=== PATIENT | female | born 1990 | race Caucasian/White ===

== ENCOUNTER 2017-10-11 05:49 | Emergency (ER) | payer OTHER ==
[2017-10-11 06:21] VITALS: BMI 32.3
--- NOTE | 2017-10-11 07:05 | PDOC ---
History of Present Illness - General Chief Complaint: Cold Symptoms Stated Complaint: FEVER Time Seen by Provider: 10/11/17 06:57 - History of Present Illness Initial Comments: 10/11/17 07:41 The patient is a 27 year old 32 week with no significant PMH who presents for evaluation of cold like symptoms. The patient reports a 1 day history of subjective fevers, cough, rhinorrhea, sore throat and body aches. She reports that she has been having intermittent abdominal cramping prompting her presentation to the ED for evaluation. She states that she wanted to get her baby checked. She otherwise denies SOB, chest pain, nausea, vomiting, or changes with urination or bowel movements. Past History - Past Medical History Allergies/Adverse Reactions: Allergies Allergy/AdvReac Type Severity Reaction Status Date / Time No Known Allergies Allergy Verified 10/11/17 06:17 Home Medications: Ambulatory Orders Pnv No.95/Ferrous Fum/Folic AC [ Tablet] 1 each PO DAILY 12/30/12 Acetaminophen [Tylenol .Regular Strength -] 325 mg PO Q3H PRN #2 tablet Oseltamivir Phosphate [Tamiflu -] 75 mg PO BID #10 capsule 10/11/17 Asthma: No Cancer: No Cardiac Disorders: No COPD: No Diabetes: No HTN: No Seizures: No Thyroid Disease: No Other medical history: Pt denies - Suicide/Smoking/Psychosocial Hx Smoking History: Never smoked Have you smoked in the past 12 months: No Information on smoking cessation initiated: No Hx Alcohol Use: No Drug/Substance Use Hx: No Substance Use Type: None Hx Substance Use Treatment: No Review of Systems - Review of Systems Comments:: 10/11/17 07:55 Constitutional: Fevers, chills, body aches. HEENT: Rhinorrhea, nasal congestion, No visual changes Cardiovascular: No chest pain, syncope, palpitations, lightheadedness Respiratory: Cough. No SOB, Hemoptysis, Gastrointestinal: No Nausea, Vomiting, Constipation, Diarrhea, Melena Genitourinary: No Dysuria, Frequency, Urgency, Hesitancy, Hematuria, Flank pain Musculoskeletal: No Myalgia, arthralgia Skin: No rashes, itching, bruising, pallor Neurologic: No Headache, Dizziness, Numbness, Weakness, or Tingling Psychiatric: No Hallucinations. No SI or HI *Physical Exam - Vital Signs Last Vital Signs Temp Pulse Resp BP Pulse Ox 98.8 F 112 H 20 133/84 100 10/11/17 06:17 10/11/17 06:17 10/11/17 06:17 10/11/17 06:17 10/11/17 06:17 - Physical Exam Comments: 10/11/17 07:56 General Appearance: Nourished. No Apparent Distress HEENT: EOMI, JOANN. Pharyngeal Erythema, No Tonsillar Exudate, Tonsillar Erythema Neck: No Cervical Lymphadenopathy Respiratory/Chest: Lungs Clear, Normal Breath Sounds. No Crackles, Rales, Rhonchi, Wheezing Cardiovascular: Regular Rhythm, Regular Rate. No Murmur, Gallops, Rubs Gastrointestinal/Abdominal: Normal Bowel Sounds, Soft. No Guarding, Rebound, Tenderness Musculoskeletal: No CVA Tenderness Extremity: Normal Capillary Refill Integumentary: Normal Color, Dry, Warm Neurologic: Fully Oriented, Alert, Normal Mood/Affect, Normal Response, Medical Decision Making - Medical Decision Making 10/11/17 08:00 The patient is a 27 year old 32 week with no significant PMH who presents for evaluation of cold like symptoms. Given the patient's history and physical exam, it is likely the patient's symptoms are due to an influenza like illness. She is lack any focal evidence of infectious process and she lacks any clinical findings of bacterial infection. We will treat empirically with tamiflu. The patient will be sent to L&D for monitoring. Sign out has been given. *DC/Admit/Observation/Transfer Diagnosis at time of Disposition: Influenza-like illness - Prescriptions Prescriptions: Oseltamivir Phosphate [Tamiflu -] 75 mg PO BID #10 capsule - Referrals Referrals: Itzel Brock [Primary Care Provider] - - Patient Instructions Printed Discharge Instructions: DI for Influenza -- Adult Additional Instructions: Please return to the ER if you experience concerning or worsening symptoms including worsening fevers, vomiting, chest pain, or difficulty breathing. It is likely your symptoms are due to the flu. We have sent a prescription for Tamiflu to your pharmacy which you should take twice a day for 5 days. You may use tylenol as needed for pain and fevers as well. Please call to schedule a follow up appointment with your primary care provider within 2-3 days to discuss your ER visit. Por favor, regrese a la meño de emergencias si experimenta problemas o empeoramiento de los sntomas incluyendo empeoramiento de las fiebres, vmitos, dolor en el pecho o dificultad para respirar. Es probable que claude sntomas se deban a la gripe. Hemos enviado isabella prescripci n para Tamiflu a black farmacia que usted debe henok dos veces al da por 5 iniguez. Usted puede usar Tylenol johanna sea necesario para el dolor y las fiebres tambi n. Por favor llame para programar isabella kalin de seguimiento con black proveedor de atencin primaria dentro de 2-3 iniguez para discutir black visita de urgencias. Print Language: SOUTH SUDANESE - Post Discharge Activity
[2017-10-11] MEDS ORDERED: OSELTAMIVIR PHOSPHATE 75 MG CAPSULE PO ONE (07:52)
[2017-10-11] MEDS ORDERED: OSELTAMIVIR PHOSPHATE 75 MG CAPSULE ONE (07:57)
--- NOTE | 2017-10-11 08:00 | PDOC ---
Attending Attestation - Resident Resident Name: DeniseSteven - ED Attending Attestation I have performed the following: I have examined & evaluated the patient, The case was reviewed & discussed with the resident, I agree w/resident's findings & plan, Exceptions are as noted - HPI HPI: 10/11/17 07:53 27-year-old healthy female at 32 weeks gestation uncomplicated presents now with nasal congestion and rhinorrhea, sore throat, dry cough, body aches, and chills since last night. No measured fever, denies any chest pain or shortness of breath, abdominal cramping but no n/v/d/c. No vaginal bleeding/discharge. no travel, no known sick contacts, child at home is well. - Physicial Exam PE: 10/11/17 08:00 Afebrile, heart rate 92 on my examination Nasal congestion and rhinorrhea Oropharynx is clear without swelling or exudate No lymphadenopathy, neck is supple Lungs are clear, heart is regular Abdomen is gravid but nontender No rash, brisk cap refill - Medical Decision Making 10/11/17 08:00 Patient seen and evaluated with the resident. I agree with the overall evaluation, assessment, and management with the following summary of visit: 27-year-old female at 32 weeks gestation presents with influenza-like illness without evidence of focal infectious process, no clinical findings suggestive of pharyngitis or pneumonia. Afebrile, normal O2 sat, improves heart rate at rest. We'll treat empirically for influenza with tamiflu, testing not available Patient primarily requesting L+D evaluation, signout given and will proceed to labor and delivery for monitoring. Understands return criteria
[2017-10-11] MEDS ORDERED: DEXTROSE 5%-LACTATED RINGERS 500 ML IV SCH (09:30)
[2017-10-11 09:54] VITALS: BP 122/88; PULSE 105; TEMP 99
[2017-10-11 10:10] LABS: BASO % 0.5 % (0-2.0); EOS % 0.3 % (0-4.5); HEMATOCRIT 32.6 % (32.4-45.2); HEMOGLOBIN 10.8 GM/dL (10.7-15.3); LYMPH % 9.7 % (8-40); MCH 25.2 pg (25.7-33.7); MCHC 33.1 g/dl (32.0-36.0); MEAN CELL VOLUME 76.2 fl (80-96); MEAN PLT VOLUME 9.2 fl (7.5-11.1); MONO % 6.9 % (3.8-10.2); NEUT % 82.6 % (42.8-82.8); PLATELET COUNT 191 K/MM3 (134-434); RBC 4.29 M/mm3 (3.60-5.2); RDW 18.2 % (11.6-15.6); WHITE BLOOD COUNT 8.5 K/mm3 (4.0-10.0)
[2017-10-11] MEDS ORDERED: DEXTROSE 5%-LACTATED RINGERS 1,000 ML IV SCH (10:30)
[2017-10-11 10:35] LABS: ALBUMIN 2.4 g/dl (3.4-5.0); ANION GAP 11 (8-16); BILIRUBIN,TOTAL 0.3 mg/dL (0.2-1.0); BLOOD UREA NITROGEN 5 mg/dL (7-18); CHLORIDE 106 mmol/L (98-107); CO2 19 mmol/L (21-32); CREATININE 0.5 mg/dL (0.55-1.02); GLUCOSE,RANDOM 172 mg/dL (74-106); POTASSIUM 3.8 mmol/L (3.5-5.1); SGOT/AST 31 U/L (15-37); SODIUM 136 mmol/L (136-145); TOT PROT 6.2 g/dl (6.4-8.2)
[2017-10-11 10:36] LABS: ALK PHOS 209 U/L (45-117); SGPT/ALT 28 U/L (12-78)
[2017-10-11] MEDS ORDERED: ACETAMINOPHEN 325 MG TABLET (FP) PO ONE (11:45)
[2017-10-11] MEDS ORDERED: ACETAMINOPHEN 325 MG TABLET (FP) ONE (11:50)
== END 2017-10-11 15:30 | disposition home or self-care (01) ==
LOC: JER 05:49
PROC: 3E033GC Introduction of Other Therapeutic Substance into Peripheral Vein, Percutaneous Approach (ICD-10-PCS; principal; 2017-10-11)
DX: O26.893 Other specified pregnancy related conditions, third trimester (principal); Z3A.32 32 weeks gestation of pregnancy; J11.1 Influenza due to unidentified influenza virus with other respiratory manifestations
CPT/HCPCS: 36415; 80053; 85025; 99282-25

== ENCOUNTER 2018-09-18 08:58 | Emergency (ER) | payer OTHER ==
[2018-09-18 09:23] VITALS: BP 140/86; PULSE 89; TEMP 98; BMI 34.3
[2018-09-18] MEDS ORDERED: IBUPROFEN 400 MG TABLET (FP) PO ONE ×2 (09:46→09:49)
[2018-09-18] MEDS ORDERED: SULFAMETHOXAZOLE/TRIMETHOPRIM 800MG/160MG D.S. TABLET PO ONE (09:46)
[2018-09-18] MEDS ORDERED: SULFAMETHOXAZOLE/TRIMETHOPRIM 800MG/160MG D.S. TABLET ONE (09:49)
--- NOTE | 2018-09-18 10:00 | PDOC ---
History of Present Illness - General Chief Complaint: Pain, Acute Stated Complaint: RIGHT SHOULDER PAIN Time Seen by Provider: 09/18/18 09:26 History Source: Patient Exam Limitations: No Limitations - History of Present Illness Initial Comments: 09/18/18 09:46 Here with complaints of right shoulder pain. States yesterday had onset of a small blister that drained pus yesterday afternoon but area has become more erythematous and tender. Occurred: reports: yesterday Severity: reports: mild, moderate Pain Location: reports: upper extremity (right shoulder ) Modifying Factors: improves with: None Loss of Consciousness: no loss of consciousness Past History - Travel Traveled outside of the country in the last 30 days: No Close contact w/someone who was outside of country & ill: No - Past Medical History Allergies/Adverse Reactions: Allergies Allergy/AdvReac Type Severity Reaction Status Date / Time No Known Allergies Allergy Verified 09/18/18 09:23 Home Medications: Ambulatory Orders Pnv No.95/Ferrous Fum/Folic AC [ Tablet] 1 each PO DAILY 12/30/12 Acetaminophen [Tylenol .Regular Strength -] 325 mg PO Q3H PRN #2 tablet Oseltamivir Phosphate [Tamiflu -] 75 mg PO BID #10 capsule 10/11/17 Sulfamethoxazole/Trimethoprim [Bactrim *Ds*] 1 each PO BID #14 tablet 09/18/18 Asthma: No Cancer: No Cardiac Disorders: No COPD: No Diabetes: No HTN: No Seizures: No Thyroid Disease: No - Reproductive History (#): 2 Cervical CA: No Dysfunctional Uterine Bleeding: No Ectopic : No Endometrial CA: No Polycystic Ovaries: No Therapeutic (s) & number: No Tubal Ligation: No - Suicide/Smoking/Psychosocial Hx Smoking History: Never smoked Have you smoked in the past 12 months: No Information on smoking cessation initiated: No Hx Alcohol Use: No Drug/Substance Use Hx: No Substance Use Type: None Hx Substance Use Treatment: No Review of Systems - Review of Systems Able to Perform ROS?: Yes Is the patient limited Italian proficient: Yes Constitutional: Yes: Symptoms Reported, See HPI, Loss of Appetite, Malaise. No : Fever HEENTM: Yes: Symptoms Reported Respiratory: No: Symptoms reported Musculoskeletal: Yes: Symptoms Reported, See HPI, Joint Swelling, Muscle Pain Integumentary: Yes: Symptoms Reported, See HPI, Lesions (warm / tender area to upper right shoulder ~ 5cm2 , non fluctuant. Not pointing) All Other Systems: Reviewed and Negative *Physical Exam - Vital Signs Last Vital Signs Temp Pulse Resp BP Pulse Ox 98.0 F 89 16 140/86 100 09/18/18 09:00 09/18/18 09:00 09/18/18 09:00 09/18/18 09:00 09/18/18 09:00 - Physical Exam General Appearance: Yes: Nourished, Appropriately Dressed, Apparent Distress, Mild Distress, Moderate Distress HEENT: positive: JOANN, Normal ENT Inspection, TMs Normal, Pharynx Normal Neck: positive: Supple, Lymphadenopathy (R), Lymphadenopathy (L). negative: Tender Respiratory/Chest: positive: Lungs Clear Extremity: positive: Normal Capillary Refill, Normal Inspection. negative: Normal Range of Motion (emitted secondary to tenderness and pain to right shoulder) Integumentary: positive: Dry, Warm, Erythema Neurologic: positive: clothes designer II-XII NML intact, Fully Oriented, Alert, Normal Mood/ Affect, Normal Response, Motor Strength 5/5 Moderate Sedation - Procedure Monitoring Vital Signs: Procedure Monitoring Vital Signs Temperature 98.0 F 09/18/18 09:00 Pulse Rate 89 09/18/18 09:00 Respiratory Rate 16 09/18/18 09:00 Blood Pressure 140/86 09/18/18 09:00 O2 Sat by Pulse Oximetry (%) 100 09/18/18 09:00 Progress Note - Progress Note Progress Note: Abscess not pointing, will soak, treat with antibiotics and have return as needed necessary *DC/Admit/Observation/Transfer Diagnosis at time of Disposition: Abscess - Discharge Dispostion Disposition: HOME Condition at time of disposition: Stable Decision to Admit order: No - Referrals - Patient Instructions Printed Discharge Instructions: DI for Skin Abscess Additional Instructions: Rest, keep area elevated. Avoid strenuous activity or exercise until wound is healed Use hot soaks to area to bring more blood to the surface and encourage drainage Allow water from shower to wash area thoroughly for 2-3 minutes, and pat dry upon exit of shower and replace dressing. Change his dressing daily until the wound is completely healed. May use Tylenol or Motrin for mild pain relief Use stronger medications as directed and prescribed Continue all medications as prescribed Followup with private physician in 2-3 days for wound check Return to emergency Department for worsening swelling, pain, redness, fevers as needed Print Language: CZECH - Post Discharge Activity
== END 2018-09-18 10:00 | disposition home or self-care (01) ==
LOC: JERFT 08:58
DX: L02.413 Cutaneous abscess of right upper limb (principal)
CPT/HCPCS: 99281-25

== ENCOUNTER 2018-10-04 08:09 | Emergency (ER) | payer OTHER ==
[2018-10-04 08:22] VITALS: BP 115/84; PULSE 99; TEMP 98; BMI 31.2
--- NOTE | 2018-10-04 09:11 | PDOC ---
History of Present Illness - General Chief Complaint: Nausea/Vomiting Stated Complaint: VOMITING/ABD PAIN Time Seen by Provider: 10/04/18 08:30 History Source: Patient Exam Limitations: Clinical Condition - History of Present Illness Initial Comments: 10/04/18 09:06 Medical history present with complaint of 3 episodes of vomiting and diarrhea since last night. Patient reported eating home cooked chicken soup yesterday. Patient reported to 2 children home with the same symptoms. Denies fever, chills , dizziness. Denies urinary frequency or dysuria. Denies any other symptoms Timing/Duration: 24 hours Past History - Past Medical History Allergies/Adverse Reactions: Allergies Allergy/AdvReac Type Severity Reaction Status Date / Time No Known Allergies Allergy Verified 10/04/18 08:20 Home Medications: Ambulatory Orders Amoxicillin/Potassium Clav [Augmentin 875-125 Tablet] 1 each PO BID 7 Days #14 tablet 10/04/18 Ondansetron [Zofran Odt -] 4 mg SL TID PRN #12 od.tablet 10/04/18 Asthma: No Cancer: No Cardiac Disorders: No COPD: No Diabetes: No HTN: No Seizures: No Thyroid Disease: No - Reproductive History (#): 2 Cervical CA: No Dysfunctional Uterine Bleeding: No Ectopic : No Endometrial CA: No Polycystic Ovaries: No Therapeutic (s) & number: No Tubal Ligation: No - Immunization History Immunization Up to Date: Yes - Suicide/Smoking/Psychosocial Hx Smoking History: Never smoked Have you smoked in the past 12 months: No Information on smoking cessation initiated: No Hx Alcohol Use: No Drug/Substance Use Hx: No Substance Use Type: None Hx Substance Use Treatment: No Review of Systems - Review of Systems Able to Perform ROS?: Yes Is the patient limited Cameroonian proficient: No Constitutional: No: Chills, Fever, Malaise HEENTM: No: Symptoms Reported Respiratory: No: Symptoms reported ABD/GI: Yes: Diarrhea, Nausea, Vomiting. No: Symptoms Reported, See HPI, Abdominal Distended, Abd. Pain w/ defecation, Blood Streaked Bowels, Constipated , Difficulty Swallowing, Poor Appetite, Poor Fluid Intake, Rectal Bleeding, Indigestion, Abdominal cramping, Tarry Stools, Other : No: Burning, Discharge, Frequency, Flank Pain, Hematuria, Urgency All Other Systems: Reviewed and Negative *Physical Exam - Vital Signs Last Vital Signs Temp Pulse Resp BP Pulse Ox 98.0 F 99 H 18 115/84 97 10/04/18 08:20 10/04/18 08:20 10/04/18 08:20 10/04/18 08:20 10/04/18 08:20 - Physical Exam Comments: 10/04/18 09:08 GENERAL: Well developed, well nourished. Awake and alert. No acute distress. HEENT: Normocephalic, atraumatic. PERRLA, EOMI. No conjunctival pallor. Sclera are non-icteric. Moist mucous membranes. Oropharynx is clear. NECK: Supple. Full ROM. CARDIOVASCULAR: Regular rate and rhythm. No murmurs, rubs, or gallops. Distal pulses are 2+ and symmetric. PULMONARY: No evidence of respiratory distress. Lungs clear to auscultation bilaterally. No wheezing, rales or rhonchi. ABDOMINAL: Soft. Non-tender. Non-distended. No rebound or guarding. No organomegaly. Normoactive bowel sounds. MUSCULOSKELETAL Normal range of motion at all joints. EXTREMITIES: No cyanosis. No clubbing. No edema. SKIN: Warm and dry. Normal capillary refill. No rashes. No jaundice. NEUROLOGICAL: Alert, awake, appropriate. Gait is normal without ataxia. PSYCHIATRIC: Cooperative. Good eye contact. Appropriate mood General Appearance: Yes: Nourished, Appropriately Dressed. No: Apparent Distress Moderate Sedation - Procedure Monitoring Vital Signs: Procedure Monitoring Vital Signs Temperature 98.0 F 10/04/18 08:20 Pulse Rate 99 H 10/04/18 08:20 Respiratory Rate 18 10/04/18 08:20 Blood Pressure 115/84 10/04/18 08:20 O2 Sat by Pulse Oximetry (%) 97 10/04/18 08:20 Medical Decision Making - Medical Decision Making 10/04/18 09:09 Patient with no significant past medical history present with complaint of 12 hour history of diarrhea, nausea, vomiting with abdominal pain. Patient afebrile with no complaint of sore throat. Symptoms likely viral gastroenteritis. Rapid strep test ordered to rule out strep pharyngitis. Patient will be treated conservatively if negative strep for viral gastroenteritis 10/04/18 09:28 rapid strep negative. Patient stable for outpatient treatment for strep pharyngitis as two children with same symptoms tested positive today *DC/Admit/Observation/Transfer Diagnosis at time of Disposition: Gastroenteritis Pharyngitis Qualifiers: Pharyngitis/tonsillitis etiology: unspecified etiology Qualified Code(s): J02.9 - Acute pharyngitis, unspecified - Discharge Dispostion Disposition: HOME Condition at time of disposition: Stable Decision to Admit order: No - Prescriptions Prescriptions: Amoxicillin/Potassium Clav [Augmentin 875-125 Tablet] 1 each PO BID 7 Days #14 tablet Ondansetron [Zofran Odt -] 4 mg SL TID PRN #12 od.tablet PRN Reason: vomiting - Referrals - Patient Instructions Printed Discharge Instructions: DI for Vomiting -- Adult, Throat Culture Additional Instructions: Take medications as prescribed. increase fluid intake. Follow-up with PCP as needed Print Language: TURKISH - Post Discharge Activity
== END 2018-10-04 09:43 | disposition home or self-care (01) ==
LOC: JERFT 08:09
DX: K52.9 Noninfective gastroenteritis and colitis, unspecified (principal); B97.89 Other viral agents as the cause of diseases classified elsewhere
CPT/HCPCS: 87070; 87880; 99281-25

== ENCOUNTER 2019-09-03 09:12 | Emergency (ER) | payer OTHER ==
[2019-09-03 09:17] VITALS: BP 147/78; BMI 31.2
[2019-09-03] MEDS ORDERED: ACETAMINOPHEN 325 MG TABLET (FP) PO ONE (09:17)
[2019-09-03] MEDS ORDERED: ACETAMINOPHEN 325 MG TABLET (FP) ONE (09:18)
--- NOTE | 2019-09-03 09:50 | PDOC ---
History of Present Illness - General Chief Complaint: Cold Symptoms Stated Complaint: COLD SYMPTOMS Time Seen by Provider: 09/03/19 09:18 History Source: Patient Exam Limitations: Clinical Condition - History of Present Illness Initial Comments: 09/03/19 09:47 Patient with no significant past medical history present with complaint of 1 day history of dry cough, nasal congestion, sore throat, fever, body aches, intermittent chest wall pain from coughing. Denies nausea, vomiting, diarrhea, constipation. Patient report taking Tylenol yesterday for fever but nothing today. Patient was given Tylenol in triage. Denies any other symptoms. Denies sick contacts or recent travel Is this a multiple visit Asthma Patient?: No Timing/Duration: 24 hours Past History - Past Medical History Allergies/Adverse Reactions: Allergies Allergy/AdvReac Type Severity Reaction Status Date / Time No Known Allergies Allergy Verified 10/04/18 08:20 Home Medications: Ambulatory Orders Benzonatate [Tessalon Pearls -] 100 mg PO Q8H PRN #20 capsule 09/03/19 Ipratropium [place] 2 spray NS BID PRN 5 Days #1 spray 09/03/19 Methylprednisolone [Medrol Dose Ignacio] 4 mg PO ASDIR #21 tablet 09/03/19 Asthma: No Cancer: No Cardiac Disorders: No COPD: No Diabetes: No HTN: No Seizures: No Thyroid Disease: No - Reproductive History (#): 2 Cervical CA: No Dysfunctional Uterine Bleeding: No Ectopic : No Endometrial CA: No Polycystic Ovaries: No Therapeutic (s) & number: No Tubal Ligation: No - Immunization History Immunization Up to Date: Yes - Psycho Social/Smoking Cessation Hx Smoking History: Never smoked Have you smoked in the past 12 months: No Information on smoking cessation initiated: No Hx Alcohol Use: No Drug/Substance Use Hx: No Substance Use Type: None Hx Substance Use Treatment: No Review of Systems - Review of Systems Able to Perform ROS?: Yes Is the patient limited Icelandic proficient: No Constitutional: Yes: Chills, Fever, Malaise HEENTM: Yes: Symptoms Reported, See HPI, Throat Pain. No: Eye Pain, Blurred Vision, Tearing, Recent change in vision, Double Vision, Cataracts, Ear Pain, Ocular Prothesis, Ear Discharge, Nose Pain, Nose Congestion, Tinnitus, Nose Bleeding, Hearing Loss, Throat Swelling, Mouth Pain, Dental Problems, Difficulty Swallowing, Mouth Swelling, Other Respiratory: Yes: Symptoms reported, See HPI, Cough. No: Orthopnea, Shortness of Breath, SOB with Exertion, SOB at Rest, Stridor, Wheezing, Productive cough, Hemoptysis, Other Cardiac (ROS): No: Symptoms Reported, See HPI, Chest Pain, Edema, Irregular Heart Rate, Lightheadedness, Palpitations, Syncope, Chest Tightness, Other ABD/GI: No: Symptoms Reported, See HPI, Nausea, Vomiting Integumentary: No: Symptoms Reported Neurological: Yes: Symptoms reported, Headache. No: Dizziness All Other Systems: Reviewed and Negative *Physical Exam - Vital Signs Last Vital Signs Temp Pulse Resp BP Pulse Ox 103.1 F H 125 H 18 147/78 97 09/03/19 09:15 09/03/19 09:15 09/03/19 09:15 09/03/19 09:15 09/03/19 09:15 - Physical Exam 09/03/19 09:50 GENERAL: Well developed, well nourished. Awake and alert. No acute distress. HEENT: Normocephalic, atraumatic. PERRLA, EOMI. No conjunctival pallor. Sclera are non-icteric. Moist mucous membranes. Oropharynx is clear. NECK: Supple. Full ROM. CARDIOVASCULAR: Regular rate and rhythm. No murmurs, rubs, or gallops. Distal pulses are 2+ and symmetric. PULMONARY: No evidence of respiratory distress. Lungs clear to auscultation bilaterally. No wheezing, rales or rhonchi. ABDOMINAL: Soft. Non-tender. Non-distended. No rebound or guarding. No organomegaly. Normoactive bowel sounds. MUSCULOSKELETAL Normal range of motion at all joints. SKIN: Warm and dry. Normal capillary refill. No rashes. No cyanosis. NEUROLOGICAL: Alert, awake, appropriate. Gait is normal without ataxia. PSYCHIATRIC: Cooperative. Good eye contact. Appropriate mood General Appearance: Yes: Nourished, Appropriately Dressed. No: Apparent Distress ED Treatment Course - Medications Given in the ED: ED Medications Discontinued Medications Generic Name Dose Route Start Last Admin Trade Name Freq PRN Reason Stop Dose Admin Acetaminophen 650 mg 09/03/19 09:17 09/03/19 09:24 Tylenol - PO 09/03/19 09:18 650 mg NOW ONE Administration Medical Decision Making - Medical Decision Making 09/03/19 09:49 Patient with no significant past medical history present with complaint of 1 day history of dry cough, nasal congestion, sore throat, fever, body aches, intermittent chest wall pain from coughing. Denies nausea, vomiting, diarrhea, constipation. Patient report taking Tylenol yesterday for fever but nothing today. Patient was given Tylenol in triage. Denies any other symptoms. Denies sick contacts or recent travel Exam significant for fever of 103.1 F. Mild pharyngeal erythema on exam. Lungs clear to auscultation bilateral patient no acute distress. Symptoms likely influenza versus strep. Rapid flu and rapid strep test ordered to rule out flu versus strep 09/03/19 10:53 Flu and strep test negative. Chest x-ray shows no acute infiltrate or pathology. Patient symptoms likely viral URI. Patient stable for outpatient management on Tessalon Perles as needed for cough and Medrol Ignacio with advised to increase fluid intake and take Tylenol today with Motrin as needed for fever with PCP follow-up Discharge - Discharge Information Problems reviewed: Yes Clinical Impression/Diagnosis: Viral syndrome, URI, acute Fever Qualifiers: Fever type: unspecified Qualified Code(s): R50.9 - Fever, unspecified Condition: Stable Disposition: HOME - Admission No - Additional Discharge Information Prescriptions: Benzonatate [Tessalon Pearls -] 100 mg PO Q8H PRN #20 capsule PRN Reason: Cough Ipratropium [place] 2 spray NS BID PRN 5 Days #1 spray PRN Reason: nasal congestion Methylprednisolone [Medrol Dose Ignacio] 4 mg PO ASDIR #21 tablet - Follow up/Referral Referrals: [facility] [place] [Provider Group] - Patient Discharge Instructions Patient Printed Discharge Instructions: DI for Viral Upper Respiratory Infection -- Adult Additional Instructions: Strep and flu test is negative. His chest x-ray is normal and shows no pneumonia. symptoms likely caused by viral upper respiratory infection. Take prescribed medication as prescribed for symptoms. Continue with Tylenol alternating with Motrin as needed for fever. Increase fluid intake. Follow-up with your primary care - Post Discharge Activity
[2019-09-03 11:02] VITALS: PULSE 109; TEMP 100.7
[2019-09-03] MEDS ORDERED: IBUPROFEN 600 MG TABLET (FP) PO ONE ×2 (11:05→11:07)
== END 2019-09-03 11:10 | disposition home or self-care (01) ==
LOC: JERFT 09:12
DX: J06.9 Acute upper respiratory infection, unspecified (principal); B97.89 Other viral agents as the cause of diseases classified elsewhere
CPT/HCPCS: 71046-TC-FY; 87070; 87804; 87880; 99282-25

== ENCOUNTER 2021-05-08 10:21 | Emergency (ER) | payer OTHER ==
[2021-05-08 10:33] VITALS: BP 137/65; PULSE 77; TEMP 98.1; BMI 31.2
[2021-05-08 12:36] LABS: HCG,QUALITATIVE URINE Negative
[2021-05-08 12:38] LABS: BASO % 0.4 % (0-2.0); EOS % 0.7 % (0-4.5); HEMATOCRIT 39.3 % (32.4-45.2); HEMOGLOBIN 13.5 GM/dL (10.7-15.3); LYMPH % 30.3 % (8-40); MCHC 34.3 g/dl (32.0-36.0); MEAN CELL VOLUME 81.6 fl (80-96); MEAN PLT VOLUME 9.6 fl (7.5-11.1); MONO % 4.6 % (3.8-10.2); PLATELET COUNT 268 10^3/uL (134-434); RBC 4.82 M/mm3 (3.60-5.2); RDW 15.1 % (11.6-15.6); WHITE BLOOD COUNT 8.8 K/mm3 (4.0-10.0)
[2021-05-08 12:58] LABS: CHLORIDE 108 mmol/L (98-107); SODIUM 139 mmol/L (136-145)
[2021-05-08 13:01] LABS: ALBUMIN 3.3 g/dl (3.4-5.0); ANION GAP 7 MMOL/L (8-16); BLOOD UREA NITROGEN 9.4 mg/dL (7-18); CO2 23 mmol/L (21-32); GLUCOSE,RANDOM 105 mg/dL (74-106)
[2021-05-08 13:02] LABS: URINE APPEARANCE CLOUDY; URINE COLOR RED; URINE GLUCOSE (UA) NEGATIVE (NEGATIVE)
[2021-05-08 13:03] LABS: URINE BILIRUBIN 2+ (NEGATIVE); URINE PROTEIN 2+ (NEGATIVE)
[2021-05-08 13:04] LABS: CREATININE 0.5 mg/dL (0.55-1.3); SGOT/AST 18 U/L (15-37); SGPT/ALT 70 U/L (13-61); URINE UROBILINOGEN 0.2 mg/dL (0.2-1.0)
[2021-05-08 13:05] LABS: BILIRUBIN,TOTAL 0.4 mg/dL (0.2-1); TOT PROT 7.1 g/dl (6.4-8.2)
[2021-05-08 13:07] LABS: ALK PHOS 98 U/L (45-117)
== END 2021-05-08 13:38 | disposition home or self-care (01) ==
LOC: JER 10:21
DX: N92.6 Irregular menstruation, unspecified (principal)
CPT/HCPCS: 36415; 80053; 81003; 84702; 84703; 85025; 87086; 99283-25

== ENCOUNTER 2021-08-18 11:51 | Emergency (ER) | payer OTHER ==
[2021-08-18 12:09] VITALS: BP 131/77; PULSE 72; TEMP 98.2; BMI 29.2
[2021-08-19 08:06] LABS: SARS-CoV-2 NAA Not Detected (Not Detected)
== END 2021-08-18 14:01 | disposition home or self-care (01) ==
LOC: JER 11:51
DX: J02.0 Streptococcal pharyngitis (principal); B97.4 Respiratory syncytial virus as the cause of diseases classified elsewhere
CPT/HCPCS: 87651; 87804; 87807; 99283-25; C9803-CS; U0003; U0005

== ENCOUNTER 2021-09-29 18:49 | Emergency (ER) | payer OTHER ==
[2021-09-29 19:44] VITALS: BP 140/90; PULSE 86; TEMP 98.1; BMI 29.2
[2021-09-29] MEDS ORDERED: ACETAMINOPHEN 500 MG TABLET (FP) PO ONE (20:30)
[2021-09-29] MEDS ORDERED: ACETAMINOPHEN 325 MG TABLET (FP) ONE (20:37)
[2021-09-29 21:11] LABS: HCG,QUALITATIVE URINE Negative
[2021-09-29 21:21] LABS: EPI CELLS >36 /uL (0-25.1); HYALINE CASTS 2 /uL (0-3.1); PH,URINE 6.5 (5.0-8.0); URINE APPEARANCE CLOUDY; URINE BACTERIA 1827 /uL (0-1359); URINE BILIRUBIN NEGATIVE (NEGATIVE); URINE COLOR YELLOW; URINE GLUCOSE (UA) NEGATIVE (NEGATIVE); URINE KETONE NEGATIVE (NEGATIVE); URINE LEUK ESTERASE 3+ (NEGATIVE); URINE NITRITE NEGATIVE (NEGATIVE); URINE PROTEIN NEGATIVE (NEGATIVE); URINE RBC 456 /uL (0-23.9); URINE UROBILINOGEN 0.2 mg/dL (0.2-1.0); URINE WBC 290 /uL (0-25.8)
[2021-09-29] MEDS ORDERED: oxyCODONE HCL 5 MG TABLET PO ONE (23:16)
[2021-09-29] MEDS ORDERED: TAMSULOSIN HCL 0.4 MG CAP PO ONE (23:16)
[2021-09-30] MEDS ORDERED: TAMSULOSIN HCL 0.4 MG CAP ONE (00:03)
[2021-09-30] MEDS ORDERED: oxyCODONE HCL 5 MG TABLET ONE (00:03)
== END 2021-09-30 00:15 | disposition home or self-care (01) ==
LOC: JER 18:49
DX: N20.0 Calculus of kidney (principal)
CPT/HCPCS: 74176-TC; 81003; 84703; 87086; 99284-25

== ENCOUNTER 2021-09-30 15:49 | Emergency (ER) | payer OTHER ==
[2021-09-30 16:07] VITALS: BP 138/79; PULSE 80; BMI 29.2
== END 2021-09-30 17:15 | disposition home or self-care (01) ==
LOC: JER 15:49
DX: N20.1 Calculus of ureter (principal); N23 Unspecified renal colic
CPT/HCPCS: 99281-25

== ENCOUNTER 2022-10-09 10:41 | Emergency (ER) | payer OTHER ==
[2022-10-09 10:50] VITALS: BP 127/66; PULSE 69; RESP 20; TEMP 97.8; BMI 29.2
[2022-10-09] MEDS ORDERED: DEXAMETHASONE SOD PHOSPHATE 10 MG/1 ML VIAL IM ONE (11:17)
[2022-10-09] MEDS ORDERED: DEXAMETHASONE SOD PHOSPHATE 10 MG/1 ML VIAL ONE (11:21)
== END 2022-10-09 11:24 | disposition home or self-care (01) ==
LOC: JER 10:41
PROC: 3E0233Z Introduction of Anti-inflammatory into Muscle, Percutaneous Approach (ICD-10-PCS; principal; 2022-10-09)
DX: M54.50 Low back pain, unspecified (principal); X50.0XXA Overexertion from strenuous movement or load, initial encounter
CPT/HCPCS: 99284-25; J1100

== ENCOUNTER 2024-01-06 12:31 | Emergency (ER) | payer OTHER ==
[2024-01-06 12:38] VITALS: BMI 29.9
[2024-01-06 13:19] LABS: EPI CELLS >36 /uL (0-25.1); HYALINE CASTS 1 /uL (0-3.1); URINE APPEARANCE CLOUDY; URINE BACTERIA 1885 /uL (0-1359); URINE BILIRUBIN NEGATIVE (NEGATIVE); URINE COLOR YELLOW; URINE GLUCOSE (UA) NEGATIVE (NEGATIVE); URINE KETONE NEGATIVE (NEGATIVE); URINE LEUK ESTERASE 2+ (NEGATIVE); URINE NITRITE NEGATIVE (NEGATIVE); URINE PROTEIN NEGATIVE (NEGATIVE); URINE RBC 27 /uL (0-23.9); URINE UROBILINOGEN 0.2 mg/dL (0.2-1.0); URINE WBC 60 /uL (0-25.8)
[2024-01-06 13:21] LABS: HCG,QUALITATIVE URINE Negative
[2024-01-06] MEDS ORDERED: ACETAMINOPHEN INJECTION 100 ML IVPB ONE (14:26)
[2024-01-06] MEDS: ACETAMINOPHEN 1000 MG/100 ML BAG IVPB ONE (14:30)
[2024-01-06 14:36] LABS: BASO % 0.6 % (0-2.0); EOS % 0.9 % (0-4.5); HEMATOCRIT 41.2 % (32.4-45.2); HEMOGLOBIN 14.2 GM/dL (10.7-15.3); LYMPH % 32.5 % (8-40); MCHC 34.4 g/dl (32.0-36.0); MEAN CELL VOLUME 81.5 fl (80-96); MEAN PLT VOLUME 9.1 fl (7.5-11.1); MONO % 4.3 % (3.8-10.2); NEUT % 61.7 % (42.8-82.8); PLATELET COUNT 275 10^3/uL (134-434); RBC 5.05 M/mm3 (3.60-5.2); WHITE BLOOD COUNT 10.4 K/mm3 (4.0-10.0)
[2024-01-06 14:39] LABS: EPI CELLS >36 /uL (0-25.1); HYALINE CASTS 2 /uL (0-3.1); URINE APPEARANCE CLOUDY; URINE BACTERIA 1972 /uL (0-1359); URINE BILIRUBIN NEGATIVE (NEGATIVE); URINE COLOR YELLOW; URINE GLUCOSE (UA) NEGATIVE (NEGATIVE); URINE KETONE NEGATIVE (NEGATIVE); URINE LEUK ESTERASE 2+ (NEGATIVE); URINE NITRITE NEGATIVE (NEGATIVE); URINE PROTEIN NEGATIVE (NEGATIVE); URINE RBC 16 /uL (0-23.9); URINE UROBILINOGEN 0.2 mg/dL (0.2-1.0); URINE WBC 275 /uL (0-25.8)
[2024-01-06 15:00] LABS: POTASSIUM 4.1 mmol/L (3.5-5.1)
[2024-01-06 15:02] LABS: ALBUMIN 3.7 g/dl (3.4-5.0); BLOOD UREA NITROGEN 8.1 mg/dL (7-18); CALCIUM 8.7 mg/dL (8.5-10.1)
[2024-01-06 15:06] LABS: CREATININE 0.7 mg/dL (0.55-1.3)
[2024-01-06 15:07] LABS: BILIRUBIN,TOTAL 0.4 mg/dL (0.2-1); TOT PROT 7.7 g/dl (6.4-8.2)
[2024-01-06] MEDS ORDERED: CEFTRIAXONE 1 GM/50 ML BAG ONE (15:42)
[2024-01-06] MEDS: CEFTRIAXONE 1,000 MG in DEXTROSE 5%-WATER - 50 ML IVPB ONE (16:08)
[2024-01-06 18:14] VITALS: BP 147/71; PULSE 62; RESP 20
[2024-01-06 18:20] VITALS: TEMP 98.7
== END 2024-01-06 18:22 | disposition home or self-care (01) ==
LOC: JER 12:31
PROC: 3E03329 Introduction of Other Anti-infective into Peripheral Vein, Percutaneous Approach (ICD-10-PCS; principal; 2024-01-06)
PROC: 3E033NZ Introduction of Analgesics, Hypnotics, Sedatives into Peripheral Vein, Percutaneous Approach (ICD-10-PCS; 2024-01-06)
DX: N30.00 Acute cystitis without hematuria (principal); M54.50 Low back pain, unspecified; M79.604 Pain in right leg; M79.605 Pain in left leg; M25.511 Pain in right shoulder; M25.512 Pain in left shoulder; R10.30 Lower abdominal pain, unspecified; R51.9 Headache, unspecified; M25.559 Pain in unspecified hip
CPT/HCPCS: 36415; 76830-TC; 80053; 81003; 84703; 85025; 87086; 99284-25; J0131

== ENCOUNTER 2024-03-29 23:25 | Emergency (ER) | payer OTHER ==
[2024-03-29 23:38] VITALS: BP 146/96; RESP 18; BMI 37.0
[2024-03-30] MEDS: ACETAMINOPHEN 500 MG TABLET (FP) PO ONE (00:17)
[2024-03-30] MEDS ORDERED: ACETAMINOPHEN 325 MG TABLET (FP) ONE (00:21)
[2024-03-30 01:16] VITALS: PULSE 92; TEMP 99
== END 2024-03-30 01:55 | disposition home or self-care (01) ==
LOC: JER 23:25
DX: M79.10 Myalgia, unspecified site (principal); R68.83 Chills (without fever); R51.9 Headache, unspecified; U07.1 COVID-19; R05.9 Cough, unspecified; J06.9 Acute upper respiratory infection, unspecified
CPT/HCPCS: 0241U-QW; 87651; 99283-25